=== PATIENT | male | born 1950 | race Caucasian/White ===

== ENCOUNTER 2017-10-14 04:15 | Inpatient (IN) | payer OTHER ==
[~2017-10-14] VITALS: Ht 175.3 cm; Wt 99.8 kg
[~2017-10-14 04:15] MED LIST: ASPIRIN EC325 M2 PO; CYANOCOBAL1000 MCG/2 IM; HUMALOG100 UNIT/2 SC; IMODIUM A-D2 M1 PO; LANTUS100 UNIT/1 SC; LIALDA1.2 G1 PO; NIACIN1000 M1 PO; OMEPRAZOLE40 M1 PO; PREDNISONE5 M1 PO; PRINIVIL20 M1 PO; ZOCOR20 M1 PO
--- NOTE | 2017-10-14 04:25 | ED CARDIAC/CP/PALPITATIONS ---
History of Present Illness General Chief Complaint: Chest Pain Stated Complaint: CHEST PAIN Source: patient Exam Limitations: no limitations Vital Signs & Intake/Output Vital Signs & Intake/Output Vital Signs Date Time Temp Pulse Resp B/P B/P Pulse O2 O2 Flow FiO2 Mean Ox Delivery Rate 10/14 0506 83 119/71 10/14 0503 98 Room Air 10/14 0500 87 143/70 10/14 0426 95.6 68 18 164/81 97 Room Air Allergies Coded Allergies: oxycodone (From OXYCONTIN) (MENTAL STATUS CHANGES - DISORIENTATION, DIZZINESS, DYSPHAGIA 05/23/16) sweet potato (UNKNOWN 05/23/16) Reconcile Medications Aspirin (Ecotrin*) 325 MG TABLET.DR 1 TAB PO DAILY HEART/BLOOD (Reported) Cyanocobalamin (Vitamin B-12) (Cyanocobalamin Injection) (Unknown Strength) VIAL (Unknown Dose) IM Q30D SUPPLEMENT (Reported) Insulin Lispro (Humalog) 100 UNIT/ML VIAL DM (Reported) Insulin-Lantus (Lantus) 100 UNIT/ML VIAL 30 UNITS SC BID DM (Reported) Lisinopril (Prinivil) 20 MG TABLET 1 TAB PO DAILY BP (Reported) Loperamide HCl (Imodium A-D) 2 MG TABLET 1 TAB PO DAILY CROHNS (Reported) Mesalamine (Lialda) 1.2 GRAM TABLET.DR 1 TAB PO TID CROHNS (Reported) Niacin 1,000 MG TABLET.ER 1 TAB PO BID UNKNOWN (Reported) Omeprazole 40 MG CAPSULE.DR 1 CAP PO DAILY GI (Reported) Prednisone 5 MG TABLET 1 TAB PO DAILY ARTHRITIS (Reported) Simvastatin (Zocor*) 20 MG TABLET 1 TAB PO DAILY CHOLESTEROL (Reported) Triage Nurses Notes Reviewed? yes Onset: Gradual Duration: hour(s): Timing: recent history Quality/Severity: moderate Location: central Radiation: jaw Activities at Onset: none Nitro Today/Relief: 0.4 mg x 1, provided at home, mild relief Aspirin Today: no aspirin today Associated Symptoms: shortness of breath, chest pain HPI: 67 yo gentleman, h/o [place], h/o ptca (2007) presents with chest pain x 2-3 hours. "At its worse was 6-7/10... I took a nitro and it went to 3/10.... I feel the pain going into my jaw.... and I had a bit of a hard time breathing." No fever, chills, cough, phlegm, wheezing, syncopal symptoms. Past History Travel History Traveled to [place] past 21 day No Medical History Any Pertinent Medical History? see below for history Cardiovascular: myocardial infarction, ANIGOPLASTY STENTS Respiratory: emphysema Gastrointestinal: Crohn's disease Musculoskeletal: osteoarthritis Endocrine: diabetes Tetanus Vaccine: 01/04/15 Surgical History Surgical History: STENTS Psychosocial History Who do you live with Spouse What is your primary language [place] Tobacco Use: Quit >30 days ago Family History Hx Contributory? No Review of Systems Review of Systems Constitutional: Reports: no symptoms. EENTM: Reports: no symptoms. Respiratory: Reports: no symptoms. Cardiovascular: Reports: no symptoms. GI: Reports: no symptoms. Genitourinary: Reports: no symptoms. Musculoskeletal: Reports: no symptoms. Skin: Reports: no symptoms. Neurological/Psychological: Reports: no symptoms. Hematologic/Endocrine: Reports: no symptoms. Immunologic/Allergic: Reports: no symptoms. All Other Systems: Reviewed and Negative Physical Exam Physical Exam General Appearance: well developed/nourished, mild distress Head: atraumatic, normal appearance Eyes: Bilateral: normal appearance. Ears, Nose, Throat: normal pharynx, normal ENT inspection Neck: normal inspection, supple, full range of motion Respiratory: normal breath sounds, chest non-tender, no respiratory distress, quiet respiration, lungs clear Cardiovascular: regular rate/rhythm Gastrointestinal: normal bowel sounds, soft, non-tender, no organomegaly Rectal: normal exam, normal rectal tone, heme negative stool Back: normal inspection, normal range of motion Extremities: normal inspection, normal capillary refill, normal range of motion, no edema Neurologic/Psych: no motor/sensory deficits, awake, alert, oriented x 3 Skin: intact, normal color, warm/dry Core Measures ACS in differential dx? No CVA/TIA Diagnosis No Sepsis Present: No Sepsis Focused Exam Completed? No Progress Differential Diagnosis: AMI, unstable angina Plan of Care: Orders Procedure Date/time Status Nothing by Mouth 10/14 B Active Saline Lock 10/15 535 Active Misc Message 10/15 535 Active ED Holding Orders 10/15 535 Active Admit to inpatient 10/15 535 Active Vital Signs 10/15 535 Active Code Status 10/15 535 Active TROPONIN LEVEL 10/148 Complete LIPASE 10/14 417 Complete HEPATIC FUNCTION PANEL 10/14 417 Complete D-DIMER 10/14 417 Complete CBC WITHOUT DIFFERENTIAL 10/14 417 Complete BASIC METABOLIC PANEL 10/14 417 Complete AMYLASE 10/14 417 Complete EKG 10/15 415 Active Current Medications Sig/Mayra Start time Last Medication Dose Stop Time Status Admin Heparin Sodium 4,000 UNIT ONCE ONE 10/14 544 UNVr (Porcine) 10/14 545 (Heparin Bolus) Heparin Sodium 25,000 UNIT Q24H 10/14 544 UNVr (Porcine) (Heparin) Sodium Chloride 500 ML Clopidogrel Bisulfate 300 MG ONCE ONE 10/14 529 UNVr (Plavix) 10/14 530 Metoprolol Tartrate 5 MG ONCE ONE 10/14 529 UNVr (Lopressor) 10/14 530 Metoprolol Tartrate 5 MG ONCE ONE 10/14 529 UNVr (Lopressor) 10/14 530 Laboratory Tests 10/14/17 0440: Anion Gap 12, Estimated GFR > 60, BUN/Creatinine Ratio 12.7, Glucose 327 H, Calcium 9.3, Total Bilirubin 0.9, Direct Bilirubin 0.2, AST 20, ALT 33, Alkaline Phosphatase 97, Troponin I < 0.01, Total Protein 6.5, Albumin 3.7, Amylase 56, Lipase 101, D-Dimer High Sensitivty 246 H, CBC w Diff NO MAN DIFF REQ, RBC 4.72 , MCV 86.7, MCH 28.4, MCHC 32.7 L, RDW 14.0, MPV 6.6 L, Gran % 74.8, Lymphocytes % 19.0 L, Monocytes % 4.8, Eosinophils % 1.0, Basophils % 0.4, Absolute Granulocytes 5.2, Absolute Lymphocytes 1.3, Absolute Monocytes 0.3, Absolute Eosinophils 0.1, Absolute Basophils 0 Diagnostic Imaging: Viewed by Me: Radiology Read. Discussed w/RAD: Radiology Read. CXR Impression: PATIENT: LAUREANO JOSHUA PRESENT AGE: 67 PATIENT ACCOUNT NO: [id number] : 48 LOCATION: [facility] ORDERING PHYSICIAN: Adonis Linda MD SERVICE DATE: 10/14/17 EXAM TYPE: RAD - XRY-PORTABLE CHEST XRAY EXAMINATION: XR PORTABLE CHEST CLINICAL INFORMATION: Chest pain COMPARISON: 11/14/2016 TECHNIQUE: Portable frontal view of the chest was obtained. FINDINGS: Cervical fusion hardware present. The lungs are well expanded. There is no focal consolidation, edema, or effusion. No pneumothorax. The cardiomediastinal silhouette is within normal limits. No acute osseous abnormality. IMPRESSION: No acute pulmonary finding. DICTATED BY: Rhys Gonzalez MD DATE/TIME DICTATED:10/14/17456 BELT PRESS OPERATOR: PROSPER DATE/TIME TRANSCRIBED:10/14/17456 CONFIDENTIAL, DO NOT COPY WITHOUT APPROPRIATE AUTHORIZATION. <Electronically signed in Other Vendor System> SIGNED BY: Lisa KASPER,Rhys 10/14/17 0501 Initial ED EKG: inferior q's, no change from prior. , nsr. Departure Departure Disposition: STILL A PATIENT Condition: Stable Clinical Impression Primary Impression: Unstable angina Referrals: Nelson Lance KASPER (PCP/Family) Departure Forms: Customer Survey General Discharge Information Admission Note Spoke With: Lani KASPER PHD,Lance White Documentation of Exam: Documentation of any treatments & extenuating circumstances including Concerns Regarding Discharge (functional status, medication knowledge or non-compliance, living conditions, etc.) that warrant an admission rather than observation: pt with signs and symptoms consistent with unstable angina, now feeling better after 02, aspirin, nitro sl, nitro paste... still with cp 1-08/12... will give lopressor, start heparin, plavix load. Critical Care Note Critical Care Note Critical Care Time: 30-74 min
[2017-10-14 04:58] LABS: ABSOLUTE BASOPHIL COUNT 0 /CUMM (0.0-0.2); ABSOLUTE EOSINOPHIL COUNT 0.1 /CUMM (0.0-0.7); ABSOLUTE GRANULOCYTE CT 5.2 /CUMM (1.4-6.5); ABSOLUTE LYMPH COUNT 1.3 /CUMM (1.2-3.4); ABSOLUTE MONOCYTE COUNT 0.3 /CUMM (0.10-0.60); BASOPHIL % 0.4 % (0.0-2.0); GRANULOCYTE % 74.8 % (42.2-75.2); HEMATOCRIT 40.9 % (42-52); MEAN CORPUSCULAR HGB 28.4 PG (27.0-31.0); MEAN CORPUSCULAR HGB CONC 32.7 G/DL (33.0-37.0); MEAN CORPUSCULAR VOLUME 86.7 FL (80.0-94.0); MEAN PLATELET VOLUME 6.6 FL (7.4-10.4); PLATELET COUNT 220 /CUMM (130-400); RED BLOOD CELL CT 4.72 /CUMM (4.70-6.10); WHITE BLOOD CELL COUNT 6.9 /CUMM (4.8-10.8)
--- NOTE | 2017-10-14 05:01 | RADIOLOGY REPORT ---
EXAMINATION: XR PORTABLE CHEST CLINICAL INFORMATION: Chest pain COMPARISON: 11/14/2016 TECHNIQUE: Portable frontal view of the chest was obtained. FINDINGS: Cervical fusion hardware present. The lungs are well expanded. There is no focal consolidation, edema, or effusion. No pneumothorax. The cardiomediastinal silhouette is within normal limits. No acute osseous abnormality. IMPRESSION: No acute pulmonary finding.
--- NOTE | 2017-10-14 06:02 | History & Physical ---
TonyJanneth 10/14/17 0555: General Information and HPI MD Statement: I have seen and personally examined LAUREANO VELAZQUEZ and documented this H&P. The patient is a 67 year old M who presented with a patient stated chief complaint of [CP]. Source of Information: patient, old records Exam Limitations: no limitations History of Present Illness: Mr. Velazquez is 67yo M w/ PMH of history coronary artery disease status post myocardial infarction in 1994, with angioplasty of the RCA followed by LAD stent in 2007, emphysema, Crohn Disease, Diabetes, OA, presented to ER was from vomiting upper back pain of the right side for the last 2-3 hours. Patient stated the non-radiating pain was throbbing and peaked at 6-7 out of 10, and he took nitro for it and went down. Patient also endorsed diaphoresis and from becoming shortness of breath. He recently came back from a fishing trip that he drove 9 hours. He had similar episodes in the past where he was diagnosed as stable angina, however this is the first that he had certain chest pain rest. Patient last seen Dr. Garibay 6 months ago, without any adjustment of the medications. During our clinical interaction, patient denied fever/night sweat/weight change/ cough/exercise intolerance/Abdominal pain/bowel movement/urinary abnormality, or other skin/musculoskeletal/neurological disorders/mood change/insomnia/dietary/ appetite change. -Smoking: Denied -Alcohol: Rare -Rec Drugs: Denies Allergies/Medications Allergies: Coded Allergies: oxycodone (From OXYCONTIN) (MENTAL STATUS CHANGES - DISORIENTATION, DIZZINESS, DYSPHAGIA 05/23/16) sweet potato (UNKNOWN 05/23/16) Home Med list Aspirin (Ecotrin*) 325 MG TABLET.DR 1 TAB PO DAILY HEART/BLOOD (Reported) Cyanocobalamin (Vitamin B-12) (Cyanocobalamin Injection) (Unknown Strength) VIAL (Unknown Dose) IM Q30D SUPPLEMENT (Reported) Insulin Lispro (Humalog) 100 UNIT/ML VIAL DM (Reported) Insulin-Lantus (Lantus) 100 UNIT/ML VIAL 30 UNITS SC BID DM (Reported) Lisinopril (Prinivil) 20 MG TABLET 1 TAB PO DAILY BP (Reported) Loperamide HCl (Imodium A-D) 2 MG TABLET 1 TAB PO DAILY CROHNS (Reported) Mesalamine (Lialda) 1.2 GRAM TABLET. 1 TAB PO TID CROHNS (Reported) Metoprolol Succinate 50 MG TAB.ER.24H 1 TAB PO DAILY BP (Reported) Niacin 1,000 MG TABLET.ER 1 TAB PO BID UNKNOWN (Reported) Omeprazole 40 MG CAPSULE.DR 1 CAP PO DAILY GI (Reported) Prednisone 5 MG TABLET 1 TAB PO DAILY ARTHRITIS (Reported) Simvastatin (Zocor*) 20 MG TABLET 1 TAB PO DAILY CHOLESTEROL (Reported) Past History Travel History Traveled to [place] past 21 day No Medical History Cardiovascular: myocardial infarction, ANIGOPLASTY STENTS Respiratory: emphysema Gastrointestinal: Crohn's disease Musculoskeletal: osteoarthritis Endocrine: diabetes Tetanus Vaccine: 01/04/15 Surgical History Surgical History: STENTS Review of Systems Review of Systems Constitutional: Reports: see HPI. Exam & Diagnostic Data Last 24 Hrs of Vital Signs/I&O Vital Signs Date Time Temp Pulse Resp B/P B/P Pulse O2 O2 Flow FiO2 Mean Ox Delivery Rate 10/14 0506 83 119/71 10/14 0503 98 Room Air 10/14 0500 87 143/70 10/14 0426 95.6 68 18 164/81 97 Room Air Intake & Output 10/14 0800 10/14 0000 10/13 1600 Intake Total 0 Output Total Balance 0 Intake, Oral 0 Patient 90.718 kg Weight Weight Reported by Patient Measurement Method Physical Exam General Appearance Alert, Oriented X3, Cooperative, No Acute Distress Skin No Rashes, No Breakdown, No Significant Lesion, facial flushed/tanned from recent fishing trip Skin Temp/Moisture Exam: Warm/Dry Sepsis Skin Exam (color): Normal for Ethnicity HEENT Atraumatic, PERRLA Neck Supple, No JVD Cardiovascular Regular Rate Lungs Clear to Auscultation, Normal Air Movement Abdomen Normal Bowel Sounds, Soft, No Tenderness Neurological Normal Speech, Strength at 5/5 X4 Ext Extremities Normal Pulses, No Tenderness/Swelling, trace edema Last 24 Hrs of Labs/Richard: Laboratory Tests 10/14/17 0440: Anion Gap 12, Estimated GFR > 60, BUN/Creatinine Ratio 12.7, Glucose 327 H, Calcium 9.3, Total Bilirubin 0.9, Direct Bilirubin 0.2, AST 20, ALT 33, Alkaline Phosphatase 97, Troponin I < 0.01, Total Protein 6.5, Albumin 3.7, Amylase 56, Lipase 101, D-Dimer High Sensitivty 246 H, CBC w Diff NO MAN DIFF REQ, RBC 4.72 , MCV 86.7, MCH 28.4, MCHC 32.7 L, RDW 14.0, MPV 6.6 L, Gran % 74.8, Lymphocytes % 19.0 L, Monocytes % 4.8, Eosinophils % 1.0, Basophils % 0.4, Absolute Granulocytes 5.2, Absolute Lymphocytes 1.3, Absolute Monocytes 0.3, Absolute Eosinophils 0.1, Absolute Basophils 0 Assessment/Plan Assessment: On admission, Vitals: Stable, heart rate 83, BP 1 9/71, room air -CBC: H/H 13.4/40.7 -BMP: Unremarkable except Glucose 327, DDimer 246, -EKG: NSR w/o significant ST-T abnormalities, similar to previous. -Interventions in ER: Tylenol, ASA 325, nitroglycerin, Toradol, Novolin, Plavix 300 mg 1 p.o., Lopressor 5 mg IV 2 Problem list & Assessment: #Unstable Angina #PMH of [place], h/o PTCA (2007), emphysema, Crohn Disease, Diabetes, OA, Hospital Course: - Admit to Telemetry for continuous monitoring, vitals per protocol daily. Patient is supposed to see Dr. Lopez in the upcoming week -Pain control per pathway DVT prophylaxis Heparin drip + ALPS Diabetic Diet Full Code As Ranked By This Provider Problem List: 1. Unstable angina Core Measures/Misc (02/19) Acute Coronary Syndrome ACS Diagnosis: No Congestive Heart Failure Congestive Heart Failure Diagnosis No Cerebrovascular Accident CVA/TIA Diagnosis: No VTE (View Protocol) VTE Risk Factors Age>40 No Mechanical VTE Prophylaxis d/t N/A MechProphylax Ordered No VTE Pharm Prophylaxis d/t NA PharmProphylax ordered Sepsis (View protocol) Sepsis Present: No Bree Paez 10/14/17 1004: Resident Review Statement Resident Statement: examined this patient, discussed with administrative intern, agreed with administrative intern Other Findings: 67-year-old gentleman on chronic prednisone therapy, past medical history significant for DE approximately 22 years ago status post angioplasty with 1 stent placement, Crohn's disease, arthritis, type 1 diabetes mellitus, hypertension hyperlipidemia came in for evaluation of chest pain. Around 2 AM this morning patient stated that he woke up and experienced a dull 7 out of 10 in chest pain on the right side which felt like something was sitting on him. This was associated with some mild shortness of breath. Denies radiation, palpitation, diaphoresis, nausea, vomiting. He recently returned from a fishing trip from [place] yesterday and he recently drove about 9 hours. Prior to this episode he was completely at baseline. Denies lower extremity swelling, fever, cough, orthopnea, bowel or bladder symptoms. Vitals /examination/labs as above. Problem list unstable angina Arthritis Coronary artery disease Crohn's disease Type 1 diabetes mellitus Hypertension Hyperlipidemia Plan We will admit to telemetry for continuous cardiac monitoring, vitals per protocol Trend troponin and EKG Patient was started on IV heparin with bolus in the ED We will continue his beta-barbara and his antihypertensive GI was notified of his admission as a courtesy call Accu-Cheks, insulin sliding scale, will continue his long-acting insulin at 32 units twice daily Diabetic diet. DVT prophylaxis IV heparin Full code
[2017-10-14 06:27] LABS: PTT 28 SEC (25-37)
[2017-10-14] MEDS ORDERED: METOPROLOL SUCC50 M2 PO (07:27)
[2017-10-14 13:23] LABS: PTT 48 SEC (25-37)
[2017-10-14 14:00] VITALS: BP 120/62
--- NOTE | 2017-10-14 14:50 | Cons- Cardiology ---
General Information and HPI Consulting Request Date of Consult: 10/14/17 Requested By: Lani KASPER PHD,Lance White Reason for Consult: Chest/abdominal discomfort Source of Information: patient, old records Exam Limitations: no limitations History of Present Illness: The patient is a 67-year-old gentleman with a past medical history of coronary artery disease (status post myocardial infarction 1994, balloon angioplasty of the RCA, LAD stenting in 2007), Crohn's disease, diabetes mellitus and emphysema. He presents to our hospital with symptoms of right upper quadrant/ costophrenic discomfort. The patient states having symptoms of right upper abdomen/costophrenic discomfort over the past several days; however, had severe recurrence of the same on the evening prior to arrival. The onset of symptoms was at rest, and was described as a moderate to severe intensity. There is no clear radiation of the symptoms by his report to me; however, in the ER chart there is report of radiation to the jaw. There is no concurrent palpitations nor dyspnea; however, he does describe mild diaphoresis. No concurrent nausea nor emesis was noted. Of note, the patient is otherwise active, describes being able to perform 6 minutes of physical activity or greater without symptoms. The patient states he is unsure if the current symptoms are similar to his prior anginal symptoms. On arrival, initial EKG was unremarkable for ischemic changes , and initial troponin isoenzyme was negative. Allergies/Medications Allergies: Coded Allergies: oxycodone (From OXYCONTIN) (MENTAL STATUS CHANGES - DISORIENTATION, DIZZINESS, DYSPHAGIA 05/23/16) sweet potato (UNKNOWN 05/23/16) Home Med List: Aspirin (Ecotrin*) 325 MG TABLET.DR 1 TAB PO DAILY HEART/BLOOD (Reported) Cyanocobalamin (Vitamin B-12) (Cyanocobalamin Injection) (Unknown Strength) VIAL (Unknown Dose) IM Q30D SUPPLEMENT (Reported) Insulin Lispro (Humalog) 100 UNIT/ML VIAL DM (Reported) Insulin-Lantus (Lantus) 100 UNIT/ML VIAL 30 UNITS SC BID DM (Reported) Lisinopril (Prinivil) 20 MG TABLET 1 TAB PO DAILY BP (Reported) Loperamide HCl (Imodium A-D) 2 MG TABLET 1 TAB PO DAILY CROHNS (Reported) Mesalamine (Lialda) 1.2 GRAM TABLET.DR 1 TAB PO TID CROHNS (Reported) Metoprolol Succinate 50 MG TAB.ER.24H 1 TAB PO DAILY BP (Reported) Niacin 1,000 MG TABLET.ER 1 TAB PO BID UNKNOWN (Reported) Omeprazole 40 MG CAPSULE.DR 1 CAP PO DAILY GI (Reported) Prednisone 5 MG TABLET 1 TAB PO DAILY ARTHRITIS (Reported) Simvastatin (Zocor*) 20 MG TABLET 1 TAB PO DAILY CHOLESTEROL (Reported) Current Medications: Current Medications Sig/Mayra Start time Last Medication Dose Route Stop Time Status Admin Acetaminophen 500 MG Q6P PRN 10/14 1245 AC 05 PO 1243 Acetaminophen 0 .STK-MED ONE 10/14 0448 DC PO Acetaminophen 975 MG ONCE ONE 10/14 0430 DC 10/14 PO 10/14 0431 0442 Aspirin 0 .STK-MED ONE 10/14 0448 DC PO Aspirin 325 MG ONCE ONE 10/14 0430 DC 05 PO 10/14 0431 0442 Atorvastatin Calcium 10 MG 1700 10/14 1700 AC PO Clopidogrel Bisulfate 300 MG ONCE ONE 10/14 0530 DC 10/14 PO 10/14 0531 0550 Heparin Sodium 0 .STK-MED ONE 10/14 0650 DC (Porcine) .ROUTE Heparin Sodium 4,000 UNIT ONCE ONE 10/14 0545 DC 10/14 (Porcine) IV 05 0546 0650 Heparin Sodium 25,000 UNIT Q24H 10/14 0545 AC 10/14 (Porcine) IV 0703 Sodium Chloride 500 ML Insulin Aspart 0 TIDAC 10/14 0800 AC 10/14 SC 1223 Insulin Detemir 32 UNITS BID 10/14 0900 AC OH Insulin Human Regular 6 UNITS STAT STA 10/14 0519 DC 10/14 SC 10/14 0520 0547 Ketorolac 0 .STK-MED ONE 10/14 0525 DC Tromethamine .ROUTE Ketorolac 30 MG ONCE ONE 10/14 0515 DC 10/14 Tromethamine IV 10/14 0516 0522 Lisinopril 20 MG DAILY 10/14 0900 AC 05 PO 0831 Metoprolol Succinate 50 MG DAILY 10/14 0900 AC 05 PO 0831 Metoprolol Tartrate 0 .STK-MED ONE 10/14 0559 DC IV Metoprolol Tartrate 5 MG ONCE ONE 10/14 0530 DC 10/14 IV 10/14 0531 0555 Metoprolol Tartrate 5 MG ONCE ONE 10/14 0530 DC IV 10/14 0531 Multivitamins 1 TAB DAILY 10/14 09 CAN PO Nicotinic Acid 1,000 MG WITH MEALS 10/14 0800 AC 10/14 PO 1222 Nitroglycerin 1 GM ONCE ONE 10/14 0515 DC 10/14 TOP 10/14 0516 0522 Nitroglycerin 0 .STK-MED ONE 10/14 0449 DC TOP Nitroglycerin 0 .STK-MED ONE 10/14 0449 DC SL Nitroglycerin 0.4 MG ONCE ONE 10/14 0430 DC 10/14 SL 10/14 0431 0500 Nitroglycerin 2 GM STAT STA 10/14 0425 CAN TOP 10/14 0426 Omeprazole 40 MG DAILY AC 10/15 0700 AC PO Prednisone 5 MG DAILY 10/14 0900 AC 10/14 PO 0831 Review of Systems Review of Systems: The review of systems is negative for chest pains, palpitations nor lightheadedness. The remainder of the 14 point review of systems is noncontributory with the exception of above. Past History Travel History Traveled to [place] past 21 day No Medical History Neurological: NONE Cardiovascular: myocardial infarction, ANIGOPLASTY STENTS Respiratory: emphysema Gastrointestinal: Crohn's disease Musculoskeletal: osteoarthritis Endocrine: diabetes Surgical History Surgical History: STENTS ANGIOPLASTY Psychosocial History Smoking Status: Former Smoker Exam & Diagnostic Data Vital Signs and I&O Vital Signs Date Time Temp Pulse Resp B/P B/P Pulse O2 O2 Flow FiO2 Mean Ox Delivery Rate 10/14 0831 96.9 64 18 126/64 10/14 0831 96.9 64 18 126/64 10/14 0641 96.9 64 18 126/64 97 Nasal 2.0L Cannula 10/14 0555 96.8 80 18 129/71 10/14 0550 96.8 80 18 129/71 98 Nasal 2.0L Cannula 10/14 0506 83 119/71 10/14 0503 98 Room Air 10/14 0500 87 143/70 10/14 0426 95.6 68 18 164/81 97 Room Air Intake & Output 10/14 1600 10/14 0800 10/14 0000 / 1600 10/13 0800 10/13 0000 Intake Total 480 0 Output Total Balance 480 0 Intake, Oral 480 0 Patient 220 lb 200 lb Weight Weight Reported by Patient Reported by Patient Measurement Method Physical Exam: General: Nontoxic, no apparent distress. HEENT: Sclera and conjunctiva within normal limits, without xanthelasmas. Neck: Carotids 2+ without bruits. Respiratory: Clear to auscultation, air movement is good, without accessory respiratory muscle use. Heart: Regular rate and rhythm, without murmurs, without JVD. Abdomen: Soft, nontender, no masses, normoactive bowel sounds. Extremities: Without clubbing, cyanosis, without edema. Neuro: Nonfocal exam, strength, 5 out of 5 Skin: Within normal limits without lesions. Psych: Mood and affect: Normal Labs/Richard Results: Laboratory Tests 10/14 10/14 1256 0440 Chemistry Sodium (137 - 145 mmol/L) 139 Potassium (3.5 - 5.1 mmol/L) 3.8 Chloride (98 - 107 mmol/L) 101 Carbon Dioxide (22 - 30 mmol/L) 26 Anion Gap (5 - 16) 12 BUN (9 - 20 mg/dL) 14 Creatinine (0.7 - 1.2 mg/dL) 1.1 Estimated GFR (>60 ml/min) > 60 BUN/Creatinine Ratio (7 - 25 %) 12.7 Glucose (65 - 99 mg/dL) 327 H Calcium (8.4 - 10.2 mg/dL) 9.3 Total Bilirubin (0.2 - 1.3 mg/dL) 0.9 Direct Bilirubin (< 0.4 mg/dL) 0.2 AST (17 - 59 U/L) 20 ALT (21 - 72 U/L) 33 Alkaline Phosphatase (< 127 U/L) 97 Troponin I (<0.11 ng/ml) < 0.01 < 0.01 Total Protein (6.3 - 8.2 g/dL) 6.5 Albumin (3.5 - 5.0 g/dL) 3.7 Amylase (30 - 110 U/L) 56 Lipase (23 - 300 U/L) 101 Coagulation APTT (25 - 37 SEC) 48 H 28 D-Dimer High Sensitivty (0 - 243 ng/ml) 246 H Hematology CBC w Diff NO MAN DIFF REQ WBC (4.8 - 10.8 /CUMM) 6.9 RBC (4.70 - 6.10 /CUMM) 4.72 Hgb (14.0 - 18.0 G/DL) 13.4 L Hct (42 - 52 %) 40.9 L MCV (80.0 - 94.0 FL) 86.7 MCH (27.0 - 31.0 PG) 28.4 MCHC (33.0 - 37.0 G/DL) 32.7 L RDW (11.5 - 14.5 %) 14.0 Plt Count (130 - 400 /CUMM) 220 MPV (7.4 - 10.4 FL) 6.6 L Gran % (42.2 - 75.2 %) 74.8 Lymphocytes % (20.5 - 51.1 %) 19.0 L Monocytes % (1.7 - 9.3 %) 4.8 Eosinophils % (0 - 5 %) 1.0 Basophils % (0.0 - 2.0 %) 0.4 Absolute Granulocytes (1.4 - 6.5 /CUMM) 5.2 Absolute Lymphocytes (1.2 - 3.4 /CUMM) 1.3 Absolute Monocytes (0.10 - 0.60 /CUMM) 0.3 Absolute Eosinophils (0.0 - 0.7 /CUMM) 0.1 Absolute Basophils (0.0 - 0.2 /CUMM) 0 Assessment/Plan Assessment/Plan 67-year-old gentleman with a past medical history of coronary artery disease ( status post myocardial infarction 1994, balloon angioplasty of the RCA, LAD stenting in 2007), Crohn's disease, diabetes mellitus and emphysema. He presents to our hospital with symptoms of right upper quadrant/costophrenic discomfort. Abdominal/epigastric/chest discomfort: The patient presents with discomfort which is atypical for an ischemic cardiac etiology and that it had onset with physical rest, and does not occur with activity. There were no ischemic ST changes noted, and he has ruled out for myocardial infarction with 2 serial troponin isoenzymes. Other etiologies for his symptoms may likely be his underlying GI issues, for which she will be followed up by his capacity analyst. We will continue on his current medication regimen without change and if acceptable from a GI/medical standpoint, we will discharge him to home with further outpatient evaluation such as stress testing by his primary wood router. Thank you for allowing us to participate in the care of your patient. Please do not hesitate to contact us further with any questions. Sincerely, Alexi Pak MD [facility] Consult Acknowledgment - Thank you for your consult request.
--- NOTE | 2017-10-14 15:48 | Patient Discharge Instructions ---
Discharge Instructions General Discharge Information You were seen/treated for: Chest pain Special Instructions: Follow-up with Dr. Silva as previously scheduled. Follow-up with Dr. Garibay within 1 week of discharge. Follow-up with your primary care physiciain within 1 week of discharge. Acute Coronary Syndrome Inclusion Criteria At DC or during hospital stay patient has or had the following: ACS DIAGNOSIS No Discharge Core Measures Meds if any: Prescribed or Continued at Discharge Meds if any: NOT Prescribed or Continued at Discharge Congestive Heart Failure Inclusion Criteria At DC or during hospital stay patient has or had the following: CHF DIAGNOSIS No Discharge Core Measures Meds if any: Prescribed or Continued at Discharge Meds if any: NOT Prescribed or Continued at Discharge Cerebrovascular accident Inclusion Criteria At DC or during hospital stay patient has or had the following: CVA/TIA Diagnosis No Discharge Core Measures Meds if any: Prescribed or Continued at Discharge Meds if any: NOT Prescribed or Continued at Discharge Venous thromboembolism Inclusion Criteria VTE Diagnosis No VTE Type NONE VTE Confirmed by (Test) NONE Discharge Core Measures - Per Current guidelines, there needs to be overlap - treatment for the first 5 days of Warfarin therapy. - If discharged on Warfarin prior to 5 days of - overlap therapy, the patient will need to be - assessed for post discharge needs including - *Post discharge parental anticoagulation - *Warfarin and/or parental anticoagulation education - *Follow up date to check INR post discharge At least 5 days overlap therapy as Inpatient No Meds if any: Prescribed or Continued at Discharge Note: Overlap Therapy is Warfarin and Anticoagulant Meds if any: NOT Prescribed or Continued at Discharge
--- NOTE | 2017-10-14 16:51 | Event Note ---
See Addendum Event Note Event Note: Patient was transferred to telemetry after an episode of unresponsiveness which led to a rapid response. Please see resident's rapid response note for full details. Of note patient is now alert. He was hyperglycemic during the episode of unresponsiveness, he was given insulin and his we are now doing Accu-Cheks every 2 to monitor for potential hypoglycemia Patient's home dose of Levemir 12 units subcutaneous twice daily restarted. Fingerstick glucose is trending down. We will follow up in EEG and ammonia level
--- NOTE | 2017-10-14 22:36 | Event Note ---
Event Note Event Note: Patient was cleared by cardiology for discharge, he was discharged home with no change in home medications, this plan was discussed with Dr. Streeter, cardiology. Patient was instructed to follow-up closely with Dr. Garibay as an outpatient for further workup. Is also instructed to keep his appointment with Dr. Silva.
--- NOTE | 2017-10-17 09:24 | Discharge Summary ---
Visit Information Visit Dates Admission Date: 10/14/17 Discharge Date: 10/14/17 Hospital Course Course Attending Physician: Lani KASPER PHD,Lance White Primary Care Physician: Lance Nelson MD Other Care Providers: Pasha KASPER, [facility] Course: Patient is a 67-year-old male with a PMH significant for CAD status post OR in 1994 status post PCI angioplasty and stent placement, emphysema, Crohn's disease , diabetes, osteoarthritis, chronic back pain, who presented to the [facility] ED with complaints of vomiting, upper back pain and chest pain. Patient was admitted to the telemetry floor, troponins were negative 2, EKG showed nonspecific ST changes. Patient was started on IV heparin overnight after the primary team discussed the case with Dr. Garibay over the phone. Patient's chest discomfort had resolved on the first day of hospitalization, and the pain was mostly in his back, which is chronic. Patient had no events on the night monitor. Pain was managed with oral analgesics. He was seen and evaluated by box spinner Dr. Pilo Streeter, who recommended discharge home with follow-up with his primary box spinner, Dr. Garibay. IV heparin was discontinued prior to discharge. Raffaele Silva MD, patient's beef specialist, was informed of the admission and recommended that the patient keep his currently scheduled outpatient appointment. Allergies: Coded Allergies: oxycodone (From OXYCONTIN) (MENTAL STATUS CHANGES - DISORIENTATION, DIZZINESS, DYSPHAGIA 05/23/16) sweet potato (UNKNOWN 05/23/16) Disposition Summary Disposition Principal Diagnosis: Chest pain Additional Diagnosis: chronic back pain Discharge Disposition: home or self care Discharge Instructions General Discharge Information Code Status: Full Code Patient's Diet: Heart Healthy Patient's Activity: As tolerated Follow-Up Instructions/Appts: PULMONARY ARTERIES: There is a filling defect within left lower lobe segmental and subsegmental branches as seen on series 2 image 369, consistent with a pulmonary embolism. No additional pulmonary arterial filling defects are seen. THORACIC AORTA: No aneurysm or dissection. LUNG: There is a trace left pleural effusion with associated left basilar opacity dependently, favoring atelectasis. The lungs are otherwise clear. No pneumothorax. MEDIASTINUM: Normal heart size. No pericardial effusion. No hilar or mediastinal lymphadenopathy. No evidence of septal bowing or right heart strain. CHEST WALL/AXILLA: No axillary or internal mammary lymphadenopathy. OSSEOUS STRUCTURES: No acute or suspicious osseous abnormality. UPPER ABDOMEN: Unremarkable. No reflux of contrast into the hepatic veins to suggest elevated right heart pressures. IMPRESSION: 1. Segmental left lower lobe pulmonary embolism extending into subsegmental branches. No evidence of elevated right heart pressures. 2. Trace left pleural effusion with associated minimal left basilar opacity favoring atelectasis. Given that this is in the distribution of the pulmonary embolism, small infarct not excluded. Medications at Discharge Discharge Medications: Continue taking these medications: Insulin-Lantus (Lantus) 100 UNIT/ML VIAL 30 Units Inject into fatty tissue TWICE DAILY Comments: DOCUMENTED PER CMR DURING PRE-SX INTERVIEW Insulin Lispro (Humalog) 100 UNIT/ML VIAL Units Inject into fatty tissue As Directed Comments: DOCUMENTED PER CMR DURING PRE-SX INTERVIEW Simvastatin (Zocor*) 20 MG TABLET 1 Tablet ORAL DAILY Comments: DOCUMENTED PER CMR DURING PRE-SX INTERVIEW Prednisone (Prednisone) 5 MG TABLET 1 Tablet ORAL DAILY Comments: DOCUMENTED PER CMR DURING PRE-SX INTERVIEW Mesalamine (Lialda) 1.2 GRAM TABLET. 1 Tablet ORAL THREE TIMES DAILY Comments: DOCUMENTED PER CMR DURING PRE-SX INTERVIEW Cyanocobalamin (Vitamin B-12) (Cyanocobalamin Injection) (Unknown Strength) VIAL Unknown Dose INTRAMUSC ONCE A MONTH Comments: DATE LAST GIVEN NOT SPECIFIED - DOCUMENTED PER CMR DURING PRE-SX INTERVIEW Niacin (Niacin) 1,000 MG TABLET.ER 1 Tablet ORAL TWICE DAILY Comments: DOCUMENTED PER CMR DURING PRE-SX INTERVIEW Loperamide HCl (Imodium A-D) 2 MG TABLET 1 Tablet ORAL DAILY Comments: DOCUMENTED PER CMR DURING PRE-SX INTERVIEW Lisinopril (Prinivil) 20 MG TABLET 1 Tablet ORAL DAILY Comments: DOCUMENTED PER CMR DURING PRE-SX INTERVIEW Omeprazole (Omeprazole) 40 MG CAPSULE.DR 1 Capsule ORAL DAILY Comments: DOCUMENTED PER CMR DURING PRE-SX INTERVIEW Aspirin (Ecotrin*) 325 MG TABLET.DR 1 Tablet ORAL DAILY Comments: DOCUMENTED PER CMR DURING PRE-SX INTERVIEW Metoprolol Succinate (Metoprolol Succinate) 50 MG TAB.ER.24H 1 Tablet ORAL DAILY Qty = 90 Comments: Last Taken:10/14/17 Time:08:31 AM Copies To: Lani KASPER PHD,Lance White; Omar KASPER,Lance Jauregui
== END 2017-10-14 18:25 | DRG 313 ==
LOC: ERH 04:15 → ERHI 05:36 → ENRESERV 09:01 → ENTRNSPT 09:29 → EDTRNSPTSTS 09:45 → EDTRNSPT 09:45 → 1NO 10:21 → CMPTRNSPT 10:21 → 1NO 10:21 → ENPENDDIS 16:53 → ENTRNSPT 18:17 → 1NO 18:25 → CMPTRNSPT 18:30
PROVIDERS: Internal Medicine Interventional Cardiology; Pediatrics
DX: R07.9 Chest pain, unspecified (principal); I25.10 Atherosclerotic heart disease of native coronary artery without angina pectoris; K50.90 Crohn's disease, unspecified, without complications; I25.2 Old myocardial infarction; E11.9 Type 2 diabetes mellitus without complications; R10.13 Epigastric pain; Z88.5 Allergy status to narcotic agent; Z91.018 Allergy to other foods; Z79.4 Long term (current) use of insulin; Z95.5 Presence of coronary angioplasty implant and graft
CPT/HCPCS: 1NP; 36592; 71045; 93005; 93010; J1644; J1885; J3490; J7512